=== PATIENT | male | born 1995 | race Caucasian/White ===

== ENCOUNTER 2018-08-23 18:51 | Emergency (ER) | payer OTHER ==
[~2018-08-23] VITALS: Ht 188 cm; Wt 90.7 kg
[2018-08-23 20:55] VITALS: BP 120/73
== END 2018-08-23 20:57 | disposition home or self-care (01) ==
LOC: ER 18:51
DX: S61.431A Puncture wound without foreign body of right hand, initial encounter (principal); Z21 Asymptomatic human immunodeficiency virus [HIV] infection status; W26.8XXA Contact with other sharp object(s), not elsewhere classified, initial encounter; Y93.89 Activity, other specified; Y92.89 Other specified places as the place of occurrence of the external cause; Y99.8 Other external cause status